=== PATIENT | male | born 1930 | race Caucasian/White ===

== ENCOUNTER 2017-02-05 10:09 | Emergency (ER) | payer OTHER, BC ==
[~2017-02-05] VITALS: Ht 182.9 cm; Wt 72.9 kg
[~2017-02-05 10:09] MED LIST: ALPRAZOLAM0.25 M2 PO; ALPRAZOLAM0.25 MG; AMBIEN CR12.5 MG; AMBIEN CR12.5 MG PO; AMBIEN5 MG PO; ATIVAN1 MG PO; ATORVASTATIN CA10 MG PO; AUTOPEN1 EACH; BENTYL20 MG PO; Bentyl PO; CARAFATE1 GM PO; CEFTIN500 MG PO; CHRONULAC,CEPHUL1 ML PO; CIPRO500 MG PO; CITALOPRAM HBR20 MG PO; CITRATE OF MAG296 ML; CITRATE OF MAG296 ML PO; Colace PO; DEXAMETHASONE4 MG PO; DICYCLOMINE; DICYCLOMINE HCL20 MG PO; DIGOXIN125 MCG PO; DIGOXIN250 MCG PO; DOCUSATE SODIU100 MG PO; ESCITALOPRAM OXA5 MG PO; EXCEDRIN EXTRA1 EACH PO; FIBER LAXATIVE500 MG PO; FLEET ENEMA-AD118 ML PR; Flagyl PO; HYOSCYAMINE0.125 MG PO; KEFLEX500 MG PO; LANOXIN,DIGIT0.25 MG; LANOXIN,DIGIT0.25 MG PO; LANOXIN250 MCG PO; LANTUS 10100 UNITS/ SC; LANTUS 10100 UNITS/ SQ; LANTUS 3 M100 UNITS/ SC; LANTUS 3 M100 UNITS1 SC; LIPITOR20 MG; LIPITOR20 MG PO; Lipitor PO; METAMUCIL; METAMUCIL CAPSU1 CAP; MILK OF MAGN PO; MIRALAX17 GM PO; MIRTAZAPINE15 MG PO; NEXIUM40 MG; NEXIUM40 MG PO; Norvasc PO; OMEPRAZOLE40 M1 PO; PREDNISONE20 MG PO; PRILOSEC40 MG PO; REMERON15 M2 PO; Ranitidine; SUCRALFATE1 GM PO; THORAZINE25 MG PO; TRAMADOL HCL50 MG PO; TYLENOL WITH C1 EACH PO; XIFAXAN550 MG PO; Xanax PO; [UNRECOGNIZED DRUG - CODE]; [UNRECOGNIZED DRUG - OTHER]
[2017-02-05 11:03] LABS: ADD MIUA? NO; BILIRUBIN NEGATIVE; BLOOD NEGATIVE; COLOR YELLOW ((YELLOW)); GLUCOSE (STRIP) NEGATIVE; KETONES NEGATIVE; LEUKOCYTES NEGATIVE; NITRITE NEGATIVE; PROTEIN (STRIP) NEGATIVE; UCUL ADDED? NO; UROBILINOGEN 0.2 MG/DL (0.2-1.0)
[2017-02-05 12:00] LABS: BASOPHIL COUNT 0.1 K/uL (0-0.1); EOSINOPHIL (%) 0.5 % (0-5); EOSINOPHIL COUNT 0.1 K/uL (0-0.3); HEMATOCRIT 39.5 % (38.0-50.0); IMMATURE GRANULOCYTE (%) 0.4 % (0.0-0.7); INSTRUMENT ABS NEUTROPHIL CT 7.3 K/uL; LYMPHOCYTE COUNT 1.3 K/uL (1.0-2.8); MCHC 33.7 G/DL (30.0-36.0); MEAN PLAT.VOLUME 9.6 uM^3 (9.0-12.4); MONOCYTE (%) 8.1 % (3-12); MONOCYTE COUNT 0.8 K/uL (0-0.8); NEUTROPHIL (%) 77.2 % (45-76); NEUTROPHIL COUNT 7.3 K/uL (1.8-6.4); PLATELET COUNT 215 K/uL (156-360); RBC DIS.WIDTH-CV 13.4 % (11.8-14.6); RBC DIS.WIDTH-SD 43.6 % (39-53); RED BLOOD COUNT 4.44 M/uL (4.00-5.50); WHITE BLOOD COUNT 9.5 K/uL (4.1-10.2)
[2017-02-05 12:10] LABS: CHLORIDE 108 mEq/L (99-109); POTASSIUM 4.4 mEq/L (3.7-5.4); SODIUM 137 mEq/L (136-147)
[2017-02-05 12:12] LABS: GLUCOSE 119 mg/dL (70-99)
[2017-02-05 12:14] LABS: ANION GAP 11 MEQ/L (2-14)
[2017-02-05 12:16] LABS: GFR ESTIMATE (CALCULATED) > 59 mL/min/
[2017-02-05 12:17] LABS: UREA NITROGEN (BUN) 23 mg/dL (9-23)
[2017-02-05 12:23] LABS: TROP-I INTERPRETATION NEGATIVE; TROPONIN-I < 0.01 ng/mL (0.0-0.30)
[2017-02-05 16:33] VITALS: BP 156/97
== END 2017-02-05 16:35 | disposition home or self-care (01) ==
LOC: EME 10:09
PROVIDERS: Emergency Medicine
DX: F03.90 Unspecified dementia, unspecified severity, without behavioral disturbance, psychotic disturbance, mood disturbance, and anxiety (principal); E11.9 Type 2 diabetes mellitus without complications; I25.2 Old myocardial infarction; E78.5 Hyperlipidemia, unspecified; I10 Essential (primary) hypertension; Z79.4 Long term (current) use of insulin; K21.9 Gastro-esophageal reflux disease without esophagitis; Z85.828 Personal history of other malignant neoplasm of skin; Z87.440 Personal history of urinary (tract) infections; Z96.651 Presence of right artificial knee joint; Z88.5 Allergy status to narcotic agent; Z87.891 Personal history of nicotine dependence
CPT/HCPCS: 70450; 71010; 74176; 80048; 81003; 83605; 84484; 85025; 87040; 93005; 99281; 99285; J2405; J3010; J7030

== ENCOUNTER 2017-02-08 16:15 | Emergency (ER) | payer OTHER, BC ==
[~2017-02-08] VITALS: Ht 182.9 cm; Wt 75.4 kg
[2017-02-08 16:53] LABS: POINT-OF-CARE METER ID UU14100415
[2017-02-08 17:37] LABS: HEMATOCRIT 38.9 % (38.0-50.0); MCH 29.7 PG (29.0-34.0); MCHC 33.2 G/DL (30.0-36.0); MCV 89.6 FL (86-99); MEAN PLAT.VOLUME 9.7 uM^3 (9.0-12.4); PLATELET COUNT 226 K/uL (156-360); RBC DIS.WIDTH-CV 13.4 % (11.8-14.6); RBC DIS.WIDTH-SD 44.4 % (39-53); RED BLOOD COUNT 4.34 M/uL (4.00-5.50); WHITE BLOOD COUNT 10.1 K/uL (4.1-10.2)
[2017-02-08 17:49] LABS: CHLORIDE 107 mEq/L (99-109); POTASSIUM 4.6 mEq/L (3.7-5.4); SODIUM 138 mEq/L (136-147)
[2017-02-08 17:50] LABS: GLUCOSE 138 mg/dL (70-99)
[2017-02-08 17:52] LABS: ANION GAP 11 MEQ/L (2-14)
[2017-02-08 17:54] LABS: GFR ESTIMATE (CALCULATED) > 59 mL/min/
[2017-02-08 17:55] LABS: UREA NITROGEN (BUN) 20 mg/dL (9-23)
[2017-02-08 18:59] VITALS: BP 151/87
== END 2017-02-08 19:00 | disposition home or self-care (01) ==
LOC: EME 16:15
PROVIDERS: Physician Assistant
DX: G30.9 Alzheimer's disease, unspecified (principal); F02.80 Dementia in other diseases classified elsewhere, unspecified severity, without behavioral disturbance, psychotic disturbance, mood disturbance, and anxiety; S00.81XA Abrasion of other part of head, initial encounter; W19.XXXA Unspecified fall, initial encounter; E11.9 Type 2 diabetes mellitus without complications; Z79.4 Long term (current) use of insulin; E78.5 Hyperlipidemia, unspecified; I10 Essential (primary) hypertension; I25.2 Old myocardial infarction; K21.9 Gastro-esophageal reflux disease without esophagitis; Z85.828 Personal history of other malignant neoplasm of skin; Z87.440 Personal history of urinary (tract) infections; Z96.651 Presence of right artificial knee joint; Z87.891 Personal history of nicotine dependence
CPT/HCPCS: 70450; 71020; 80048; 81003; 82948; 85027; 99281; 99284

== ENCOUNTER 2017-04-25 10:42 | Emergency (ER) | payer OTHER, BC ==
[~2017-04-25] VITALS: Ht 182.9 cm; Wt 81.8 kg
[2017-04-25 11:07] LABS: HEMATOCRIT 44.4 % (38.0-50.0); MCH 30.3 PG (29.0-34.0); MCHC 33.3 G/DL (30.0-36.0); MCV 90.8 FL (86-99); MEAN PLAT.VOLUME 9.6 uM^3 (9.0-12.4); PLATELET COUNT 312 K/uL (156-360); RBC DIS.WIDTH-CV 13.5 % (11.8-14.6); RBC DIS.WIDTH-SD 45.2 % (39-53); RED BLOOD COUNT 4.89 M/uL (4.00-5.50); WHITE BLOOD COUNT 12.8 K/uL (4.1-10.2)
[2017-04-25 11:19] LABS: CHLORIDE 106 mEq/L (99-109); POTASSIUM 4.5 mEq/L (3.7-5.4); SODIUM 139 mEq/L (136-147)
[2017-04-25 11:21] LABS: GLUCOSE 155 mg/dL (70-99)
[2017-04-25 11:22] LABS: ANION GAP 15 MEQ/L (2-14)
[2017-04-25 11:23] LABS: TOTAL BILIRUBIN 0.7 mg/dL (0.0-1.0)
[2017-04-25 11:24] LABS: ALKALINE PHOSPHATASE 95 IU/L (3-129)
[2017-04-25 11:25] LABS: GFR ESTIMATE (CALCULATED) 51 mL/min/
[2017-04-25 11:26] LABS: UREA NITROGEN (BUN) 25 mg/dL (9-23)
[2017-04-25 11:28] LABS: TROP-I INTERPRETATION NEGATIVE; TROPONIN-I < 0.01 ng/mL (0.0-0.30)
[2017-04-25 14:18] LABS: ADD MIUA? YES; BILIRUBIN NEGATIVE; BLOOD SMALL; COLOR YELLOW ((YELLOW)); GLUCOSE (STRIP) NEGATIVE; KETONES NEGATIVE; LEUKOCYTES NEGATIVE; NITRITE NEGATIVE; PROTEIN (STRIP) NEGATIVE; SPECIFIC GRAVITY 1.015 (1.000-1.030); UROBILINOGEN 0.2 MG/DL (0.2-1.0)
[2017-04-25 14:26] LABS: BACTERIA NONE SEEN /HPF; EPITHELIAL CELLS RARE /HPF; HYALINE CASTS 0-5 /LPF; RED BLOOD CELLS 0-5 /HPF (0-5); UCUL ADDED? NO; WHITE BLOOD CELLS 0-5 /HPF (0-5)
[2017-04-25 14:27] LABS: MUCUS TRACE /LPF
[2017-04-25 16:45] VITALS: BP 142/85
== END 2017-04-25 16:46 | disposition home or self-care (01) ==
LOC: EME 10:42
PROVIDERS: Emergency Medicine
DX: F03.90 Unspecified dementia, unspecified severity, without behavioral disturbance, psychotic disturbance, mood disturbance, and anxiety (principal); R45.1 Restlessness and agitation; Z78.1 Physical restraint status; J44.9 Chronic obstructive pulmonary disease, unspecified; E11.9 Type 2 diabetes mellitus without complications; E78.5 Hyperlipidemia, unspecified; I10 Essential (primary) hypertension; Z79.4 Long term (current) use of insulin; I25.2 Old myocardial infarction; K21.9 Gastro-esophageal reflux disease without esophagitis; F32.9 Major depressive disorder, single episode, unspecified; F41.9 Anxiety disorder, unspecified; Z85.828 Personal history of other malignant neoplasm of skin; Z87.891 Personal history of nicotine dependence; Z87.440 Personal history of urinary (tract) infections; Z88.5 Allergy status to narcotic agent
CPT/HCPCS: 71010; 80053; 81003; 84484; 85027; 93005; 99281; 99285; J1630; J2060; J7030

== ENCOUNTER 2017-04-26 18:38 | Inpatient (IN) | payer OTHER, BC ==
[~2017-04-26] VITALS: Ht 182.9 cm; Wt 73.6 kg
[2017-04-26 19:45] LABS: HEMATOCRIT 42.1 % (38.0-50.0); MCH 30.2 PG (29.0-34.0); MCHC 33.5 G/DL (30.0-36.0); MCV 90.1 FL (86-99); MEAN PLAT.VOLUME 9.6 uM^3 (9.0-12.4); PLATELET COUNT 275 K/uL (156-360); RBC DIS.WIDTH-CV 13.9 % (11.8-14.6); RBC DIS.WIDTH-SD 45.8 % (39-53); RED BLOOD COUNT 4.67 M/uL (4.00-5.50); WHITE BLOOD COUNT 16.7 K/uL (4.1-10.2)
[2017-04-26 19:53] LABS: CHLORIDE 102 mEq/L (99-109); POTASSIUM 4.3 mEq/L (3.7-5.4); SODIUM 134 mEq/L (136-147)
[2017-04-26 19:54] LABS: GLUCOSE 143 mg/dL (70-99)
[2017-04-26 19:56] LABS: ANION GAP 12 MEQ/L (2-14)
[2017-04-26 19:58] LABS: GFR ESTIMATE (CALCULATED) 44 mL/min/
[2017-04-26 19:59] LABS: UREA NITROGEN (BUN) 27 mg/dL (9-23)
[2017-04-26 22:45] LABS: ADD MIUA? YES; BILIRUBIN NEGATIVE; BLOOD SMALL; COLOR YELLOW ((YELLOW)); GLUCOSE (STRIP) NEGATIVE; KETONES NEGATIVE; LEUKOCYTES NEGATIVE; NITRITE NEGATIVE; PROTEIN (STRIP) 30; UROBILINOGEN 0.2 MG/DL (0.2-1.0)
[2017-04-26 22:51] LABS: BACTERIA RARE /HPF; EPITHELIAL CELLS RARE /HPF; GRANULAR CASTS 0-5 /LPF; HYALINE CASTS 20-30 /LPF; MUCUS TRACE /LPF; UCUL ADDED? NO; WHITE BLOOD CELLS 0-5 /HPF (0-5)
[2017-04-27 01:25] VITALS: BP 128/73
[2017-04-27 03:43] LABS: HDL CHOLESTEROL 40 MG/DL (Desirable>=40); LDL CHOLESTEROL 141 mg/dL (Desirable<100); NON-HDL CHOLESTEROL 182 mg/dL (Desirable<160); SAMPLE HEMOLYSIS CHECK 0; SAMPLE ICTERIC CHECK 0; SAMPLE LIPEMIA CHECK 0; TOTAL CHOLESTEROL 222 mg/dL (Desirable<200); TRIGLYCERIDES 206 MG/DL (Normal: <150)
[2017-04-27 07:48] LABS: Estimated Average Glucose 126 mg/dL (70-123)
[2017-04-27 08:00] VITALS: BP 158/90
[2017-04-27 09:02] LABS: HEMATOCRIT 41.5 % (38.0-50.0); MCH 29.8 PG (29.0-34.0); MCV 90.4 FL (86-99); MEAN PLAT.VOLUME 9.7 uM^3 (9.0-12.4); PLATELET COUNT 281 K/uL (156-360); RBC DIS.WIDTH-CV 13.7 % (11.8-14.6); RBC DIS.WIDTH-SD 45.6 % (39-53); RED BLOOD COUNT 4.59 M/uL (4.00-5.50); WHITE BLOOD COUNT 11.1 K/uL (4.1-10.2)
[2017-04-27 09:26] LABS: ANION GAP 12 MEQ/L (2-14); CHLORIDE 104 MEQ/L (99-109); GFR ESTIMATE (CALCULATED) 44 mL/min/; GLUCOSE 144 mg/dL (70-99); POTASSIUM 4.5 MEQ/L (3.7-5.4); SAMPLE HEMOLYSIS CHECK 0; SAMPLE ICTERIC CHECK 0; SAMPLE LIPEMIA CHECK 0; SODIUM 137 MEQ/L (136-147); UREA NITROGEN (BUN) 27 mg/dL (9-23)
[2017-04-28 07:45] LABS: HEMATOCRIT 39.4 % (38.0-50.0); MCH 30.6 PG (29.0-34.0); MEAN PLAT.VOLUME 9.6 uM^3 (9.0-12.4); PLATELET COUNT 250 K/uL (156-360); RBC DIS.WIDTH-CV 13.8 % (11.8-14.6); RBC DIS.WIDTH-SD 45.2 % (39-53); RED BLOOD COUNT 4.38 M/uL (4.00-5.50); WHITE BLOOD COUNT 9.2 K/uL (4.1-10.2)
[2017-04-28 08:11] VITALS: BP 155/73
[2017-04-28 09:09] LABS: ANION GAP 13 MEQ/L (2-14); CHLORIDE 107 MEQ/L (99-109); GFR ESTIMATE (CALCULATED) 55 mL/min/; GLUCOSE 122 mg/dL (70-99); POTASSIUM 4.7 MEQ/L (3.7-5.4); SAMPLE HEMOLYSIS CHECK 0; SAMPLE ICTERIC CHECK 0; SAMPLE LIPEMIA CHECK 0; SODIUM 140 MEQ/L (136-147); UREA NITROGEN (BUN) 27 mg/dL (9-23)
[2017-04-28 15:28] VITALS: BP 126/70
[2017-04-28 19:55] VITALS: BP 122/72
[2017-04-29 01:14] VITALS: BP 157/85
[2017-04-29 07:07] VITALS: BP 155/87
[2017-04-29 07:22] LABS: ANION GAP 9 MEQ/L (2-14); CHLORIDE 105 MEQ/L (99-109); GFR ESTIMATE (CALCULATED) 51 mL/min/; GLUCOSE 142 mg/dL (70-99); POTASSIUM 4.4 MEQ/L (3.7-5.4); SAMPLE HEMOLYSIS CHECK 0; SAMPLE ICTERIC CHECK 0; SAMPLE LIPEMIA CHECK 0; SODIUM 138 MEQ/L (136-147); UREA NITROGEN (BUN) 33 mg/dL (9-23)
[2017-04-29 12:13] LABS: TROP-I INTERPRETATION NEGATIVE; TROPONIN-I 0.02 ng/mL (0.0-0.30)
[2017-04-29 15:09] VITALS: BP 160/75
[2017-04-30 01:33] VITALS: BP 136/88
[2017-04-30 03:54] VITALS: BP 123/92
[2017-04-30 07:11] VITALS: BP 178/95
[2017-04-30 09:28] LABS: ANION GAP 9 MEQ/L (2-14); CHLORIDE 105 MEQ/L (99-109); GFR ESTIMATE (CALCULATED) > 59 mL/min/; GLUCOSE 153 mg/dL (70-99); POTASSIUM 4.2 MEQ/L (3.7-5.4); SAMPLE HEMOLYSIS CHECK 0; SAMPLE ICTERIC CHECK 0; SAMPLE LIPEMIA CHECK 0; SODIUM 137 MEQ/L (136-147); UREA NITROGEN (BUN) 25 mg/dL (9-23)
[2017-04-30 16:46] VITALS: BP 112/72
[2017-04-30 23:46] VITALS: BP 130/70; BP 145/84
[2017-05-01 07:47] VITALS: BP 129/65
[2017-05-01 15:43] VITALS: BP 127/71
[2017-05-01 20:00] VITALS: BP 143/73
[2017-05-01 21:35] VITALS: BP 139/69
[2017-05-01 21:51] LABS: POINT-OF-CARE METER ID UU13113717
[2017-05-02] VITALS (7 sets, daily range): BP systolic 114–163; BP diastolic 61–80
[2017-05-02] MEDS ORDERED: FAMOTIDINE20 MG PO (11:18)
[2017-05-03 04:07] VITALS: BP 133/76
[2017-05-03 07:54] VITALS: BP 137/73
[2017-05-03 15:31] VITALS: BP 132/70
[2017-05-03 19:42] VITALS: BP 147/77
[2017-05-04 03:41] VITALS: BP 126/71
[2017-05-04] MEDS ORDERED: ASPIR-LOW81 MG PO (13:15)
[2017-05-04] MEDS ORDERED: ATORVASTATIN CA40 MG PO (13:15)
[2017-05-04] MEDS ORDERED: COGENTIN0.5 MG PO (13:15)
[2017-05-04] MEDS ORDERED: CITALOPRAM HBR10 MG PO (13:15)
[2017-05-04] MEDS ORDERED: HALDOL0.5 MG PO (13:15)
== END 2017-05-04 15:35 | DRG 683 ==
LOC: EME 18:38 → EDOF 04-27 00:19 → 5SOUTH 04-27 00:19 → ENRESERV 04-27 00:20 → 5SOUTH 04-27 01:15
PROVIDERS: Emergency Medicine; Hospitalist; Nurse Practitioner Adult Health; Physician Assistant Medical
DX: N17.9 Acute kidney failure, unspecified (principal); F03.91 Unspecified dementia, unspecified severity, with behavioral disturbance; E78.5 Hyperlipidemia, unspecified; K21.9 Gastro-esophageal reflux disease without esophagitis; I25.10 Atherosclerotic heart disease of native coronary artery without angina pectoris; Z96.651 Presence of right artificial knee joint; E86.0 Dehydration; E11.9 Type 2 diabetes mellitus without complications; I10 Essential (primary) hypertension; I25.2 Old myocardial infarction; R13.10 Dysphagia, unspecified; Z87.891 Personal history of nicotine dependence; I48.91 Unspecified atrial fibrillation; J44.9 Chronic obstructive pulmonary disease, unspecified; F32.9 Major depressive disorder, single episode, unspecified; Z78.1 Physical restraint status; Z91.81 History of falling
CPT/HCPCS: 70450; 71010; 71020; 80048; 80053; 80061; 81003; 82607; 82746; 82948; 83036; 84443; 84484; 85027; 87040; 92526 GN; 92610 GN; 93005; 93306; 99281; 99285; J1630; J1644; J2060; J7030